=== PATIENT | male | born 1990 | race Caucasian/White ===

== ENCOUNTER 2019-10-01 15:42 | Outpatient (CLI) | payer OTHER ==
--- NOTE | 2019-10-02 09:36 | MRI Report ---
Reason: PAIN LEFT KNEE Procedure Date: 10/01/2019 Accession Number: [id number] / [id number] Procedure: MRI - Knee LT W/O CPT Code: Final Report FULL RESULT: EXAM: LEFT KNEE MRI WITHOUT CONTRAST EXAM DATE: 10/01/2019 05:02 PM. CLINICAL HISTORY: Pain left knee. COMPARISON: None. TECHNIQUE: Multiplanar, multisequence T1-weighted and fluid-sensitive sequences of the knee without contrast. Other: None. FINDINGS: Bones: No fractures or subluxations. No marrow edema. No bone lesions. Articular Cartilage: Unremarkable. Medial Meniscus: The medial meniscus is intact. Lateral Meniscus: The lateral meniscus is intact. Cruciate Ligaments: The anterior and posterior cruciate ligaments are intact. Collateral Ligaments: The medial collateral and lateral collateral ligamentous structures are intact. Tendons: The quadriceps, patellar, semimembranosus, and popliteus tendons are unremarkable. Musculature: No edema or fatty atrophy. Other: No effusion. A medial synovial plica with a maximum thickness of approximately 1.6 mm is present. No popliteal cyst. No loose bodies. The medial and lateral retinacula are intact. The subcutaneous tissues and fat pads are unremarkable. IMPRESSION: 1. Medial synovial plica with a maximum thickness of approximately 1.6 mm. 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 2. Otherwise, unremarkable MRI of the left knee. No evidence of ligament or meniscal tear. [facility]
== END 2019-10-01 15:43 | disposition home or self-care (01) ==
LOC: DI 15:42
PROVIDERS: ATTEND Family Medicine
DX: M67.862 Other specified disorders of synovium, left knee (principal)